=== PATIENT | female | born 1975 | race African-American/Black ===

== ENCOUNTER 2022-02-14 01:09 | Emergency (ER) | payer OTHER ==
[2022-02-14 01:26] VITALS: BP 145/92; PULSE 66; TEMP 97.4; BMI 33.1
[2022-02-14] MEDS ORDERED: ACETAMINOPHEN 325 MG TABLET (FP) PO ONE (02:20)
[2022-02-14] MEDS ORDERED: LIDOCAINE 5% TOPICAL PATCH TP ONE (02:20)
[2022-02-14] MEDS ORDERED: LIDOCAINE 5% TOPICAL PATCH ONE (02:29)
[2022-02-14] MEDS ORDERED: ACETAMINOPHEN 325 MG TABLET (FP) ONE (02:29)
[2022-02-14] MEDS ORDERED: LIDOCAINE PATCH REMOVAL MC ONE (14:00)
== END 2022-02-14 03:28 | disposition home or self-care (01) ==
LOC: JER 01:09
DX: S46.811A Strain of other muscles, fascia and tendons at shoulder and upper arm level, right arm, initial encounter (principal); V49.40XA Driver injured in collision with unspecified motor vehicles in traffic accident, initial encounter
CPT/HCPCS: 99283-25